=== PATIENT | male | born 1955 | race Caucasian/White ===

== ENCOUNTER 2017-04-27 20:04 | Emergency (ER) | payer OTHER ==
[~2017-04-27] VITALS: Ht 165.1 cm; Wt 48.7 kg
[~2017-04-27 20:04] MED LIST: FURO20TA PO; POTA-243 PO; SULF1TAB47 PO
[2017-04-27 20:10] VITALS: BP 163/72; PULSE 91; RESP 16; TEMP 98.1; O2SAT 98
[2017-04-27] MEDS ORDERED: ASPI-516 CHEW (20:41)
[2017-04-27] MEDS ORDERED: FURO1TAB62 PO (20:41)
[2017-04-27] MEDS ORDERED: POTA10SO12 PO (20:41)
[2017-04-27] MEDS ORDERED: TRAM50TA PO (20:41)
[2017-04-27] MEDS ORDERED: PROPOFOL 200 MG/20 ML AMP IV ONE (21:15)
[2017-04-27 21:24] VITALS: O2SAT 100
[2017-04-27] MEDS ORDERED: ETOMIDATE 20 MG/10 ML VIAL ONE ×2 (21:37→21:49)
--- NOTE | 2017-04-27 21:37 | PD ---
HPI Chief Complaint: Musculoskeletal Complaint Time Seen by Provider: 20:57 Travel History International Travel<30 days: No Contact w/Intl Traveler<30days: No Traveled to known affect area: No History of Present Illness HPI This patient complains of shoulder dislocation. Earlier this afternoon he fell onto the right shoulder. After that he couldn't move it correctly. He went to an urgent care center and had an x-ray showing posterior dislocation without fracture. Rather than reducing the dislocation the urgent care physician sent him here. Patient complains of moderate severity right shoulder pain which is worse movement. It is alleviated by rest. Duration one day. Denies other injury or pain. Denies prior history of dislocation. Severity of symptoms is moderate. PFSH Past Medical History Arthritis: Yes (SEPTIC ARTHRITIS) Asthma: No Autoimmune Disease: No Blood Disorders: No Heart Rhythm Problems: No Cancer: No Cardiovascular Problems: Yes High Cholesterol: No Chemotherapy: No Chest Pain: No Congestive Heart Failure: No COPD: No Cerebrovascular Accident: No Diabetes: No Diminished Hearing: No Endocrine: No Gastrointestinal Disorders: Yes (HX C-DIFF) GERD: No Glaucoma: No Genitourinary: No Headaches: No Hepatitis: No Hiatal Hernia: No Hypertension: No Immune Disorder: No Implanted Vascular Access Dvce: Yes Kidney Stones: No Musculoskeletal: No Neurologic: Yes ([facility]) Psychiatric: No Reproductive: No Respiratory: No Myocardial Infarction: No Radiation Therapy: No Renal Failure: No Seizures: No Sickle Cell Disease: No Sleep Apnea: No Thyroid Disease: No Ulcer: No Past Surgical History Abdominal Surgery: No AICD: No Arteriovenous Shunt: No Body Medical Devices: IVC FILTER Cardiac Surgery: No Ear Surgery: No Endocrine Surgery: No Eye Surgery: No Genitourinary Surgery: No Gynecologic Surgery: No Insulin Pump: No Joint Replacement: No Neurologic Surgery: No Oral Surgery: No Pacemaker: No Thoracic Surgery: No Other Surgery: Yes Social History Alcohol Use: No Tobacco Use: No Substance Use: No Allergies-Medications (Allergen,Severity, Reaction): Coded Allergies: No Known Allergies (Verified Adverse Reaction, Unknown, 04/27/17) Reported Meds & Prescriptions Reported Meds & Active Scripts Active Reported Aspirin 81 Mg Chew 81 Mg CHEW DAILY Tramadol (Tramadol HCl) 50 Mg Tab 50 Mg PO Q6H PRN Potassium Chloride Liq (Potassium Chloride) 20 Meq/15 Ml Soln 20 Meq PO DAILY Lasix (Furosemide) 20 Mg Tab 20 Mg PO BID Review of Systems General / Constitutional: No: Fever Eyes: No: Visual changes HENT: No: Headaches Cardiovascular: No: Chest Pain or Discomfort Respiratory: No: Shortness of Breath Gastrointestinal: No: Abdominal Pain Genitourinary: No: Dysuria Musculoskeletal: Positive: Arthralgias, Limited ROM, Pain Skin: No Rash Neurologic: No: Weakness Psychiatric: No: Depression Endocrine: No: Polydipsia Hematologic/Lymphatic: No: Easy Bruising Physical Exam Narrative GENERAL: Very thin well-developed patient in no apparent distress. SKIN: Focused skin assessment reveals no rash and nodules. Skin is Warm and dry. HEAD: Atraumatic. Normocephalic. EYES: Pupils equal and round. No scleral icterus. No injection or drainage. ENT: No nasal bleeding or discharge. Mucous membranes pink and moist. NECK: Trachea midline. No JVD. CARDIOVASCULAR: Regular rate and rhythm. No murmur appreciated. RESPIRATORY: No accessory muscle use. Clear to auscultation. Breath sounds equal bilaterally. GASTROINTESTINAL: Abdomen soft, non-tender, nondistended. Hepatic and splenic margins not palpable. MUSCULOSKELETAL: Has some deformity at the right shoulder. There is a vague fullness posterior to the glenoid fossa. No bony tenderness. No clubbing. No cyanosis. No edema. NEUROLOGICAL: Awake and alert. No obvious cranial nerve deficits. Motor grossly within normal limits. Normal speech. PSYCHIATRIC: Appropriate mood and affect; insight and judgment normal. Data Data Last Documented VS Vital Signs Date Time Temp Pulse Resp B/P (MAP) Pulse Ox O2 Delivery O2 Flow Rate FiO2 04/27/17 23:07 16 99 Nasal Cannula 2.00 04/27/17 22:57 89 04/27/17 20:10 98.1 Orders Orders Manager Loss Prevention / Telemetry ROB.Q8H (04/27/17 21:12) Oximetry (04/27/17 21:12) Oxygen Administration (04/27/17 21:12) Propofol 200 Mg/20 Ml Inj (Diprivan 200 (04/27/17 21:15) Etomidate Inj (Amidate Inj) (04/27/17 21:37) Etomidate Inj (Amidate Inj) (04/27/17 21:49) Shoulder, Limited(2vws) (04/27/17 ) Ed Discharge Order (04/27/17 23:34) Support Splint (04/27/17 23:34) MDM Medical Decision Making Medical Screen Exam Complete: Yes Emergency Medical Condition: Yes Medical Record Reviewed: Yes Differential Diagnosis Shoulder dislocation, shoulder fracture, soft tissue tear Narrative Course I have reviewed the patient's electronic medical record. I reviewed the radiologist's report of his outpatient x-ray today showing posterior dislocation of the right shoulder without fracture Patient's x-ray today matches his presentation and physical exam so I'm not going to re-x-ray him prior to reduction We discussed options and he gives verbal and written consent. Procedure note: I attached him to telemetry monitoring and oximetry and placed on 2 L nasal cannula oxygen. Was 20 minutes of continual physician bedside time. I gave him 35 mg IV Diprivan initially but this didn't do anything. I gave him an additional 15 mg IV Diprivan and this did nothing as well. I gave him 30 mg more followed by 20 mg more and a total of 100 mg IV Diprivan and he was still awake and talking, This patient was very challenging to get sedated properly. Following the Diprivan failure I gave him 10 mg IV etomidate and he was still awake and talking and not at all sedated. I gave him an additional 10 mg IV etomidate. He finally became sedated. I had an assistant operator hold countertraction using a sheet and I applied traction to the right arm and was able to reduce the shoulder dislocation. I placed him in a sling. However, the patient became very shallow with his respiratory drive and respiratory therapist bag him for about 8 minutes until the sedation wore off. He gradually woke up and started breathing well on his own. We observed him here and monitoring for long period of time. At 11:30 PM he's been awake and talking for well over an hour and we and related him about the department and he did fine. Stable for outpatient orthopedist follow-up He will rest and ice and wear the sling I reviewed the post reduction x-ray which revealed according to the radiologist a reduction. No fractures noted Diagnosis Primary Impression: Posterior dislocation of right shoulder joint Qualified Codes: S43.021A - Posterior subluxation of right humerus, initial encounter Additional Instructions: Wear sling Apply ice and rest right shoulder Follow-up with orthopedist Med/Other Pt SpecificInfo: Other Disposition: DISCHARGE HOME Condition: Stable Jorge Sigala MD Apr 27, 2017 21:37
--- NOTE | 2017-04-27 22:16 | RADRPT ---
EXAM DATE/TIME: 04/27/2017 22:03 [facility] COMPARISON: No previous studies available for comparison. INDICATIONS : Post reduction right shoulder. MEDICAL HISTORY : None. SURGICAL HISTORY : None. ENCOUNTER: Initial ACUITY: 1 day PAIN SCORE: 5/10 LOCATION: Right shoulder. FINDINGS: The right humeral head appears to be anatomic in position in relation to the glenoid status post redu ction. CONCLUSION: Right humeral head is anatomic in position in relation to the glenoid status post reduction. Carson Lee MD on April 27, 2017 at 22:12 Board Certified Radiologist. This report was verified electronically.
[2017-04-27 22:57] VITALS: BP 121/79; PULSE 89; RESP 16; O2SAT 100
[2017-04-27 23:07] VITALS: RESP 16; O2SAT 99
[2017-04-27 23:34] VITALS: RESP 16; O2SAT 99
[2017-04-27 23:35] VITALS: BP 133/76
== END 2017-04-28 00:02 | disposition home or self-care (01) ==
LOC: PHED 20:04
DX: S43.021A Posterior subluxation of right humerus, initial encounter (principal); W19.XXXA Unspecified fall, initial encounter
CPT/HCPCS: 23650; 73030; 94770; 99152